=== PATIENT | female | born 1985 | race African-American/Black ===

== ENCOUNTER 2019-10-24 02:33 | Emergency (ER) | payer OTHER ==
[2019-10-24 03:36] LABS: Absolute Lymphocytes (CBC) 2.1 K/uL (0.7-4.9); Basophils % 0.5 % (0-1.3); Hematocrit 37.7 % (36.0-45.0); Lymphocytes % 31.3 % (15.3-44.8); MPV 10.7 fL (7.6-11.3); RBC Red Blood Cell Count 4.36 M/uL (3.86-4.86)
[2019-10-24 03:40] LABS: Protime INR 0.9
[2019-10-24 03:43] LABS: ALT/SGPT 20 U/L (12-78); AST/SGOT 20 U/L (15-37); Albumin 3.2 g/dL (3.4-5.0); Alkaline Phosphatase 77 U/L (45-117); BUN Blood Urea Nitrogen 12 mg/dL (7-18); Bicarbonate 27 mmol/L (21-32); Bilirubin Direct < 0.1 mg/dL (0-0.2); Bilirubin Total 0.2 mg/dL (0.2-1.0); Glucose Level 98 mg/dL (74-106); Potassium 3.1 mmol/L (3.5-5.1); Protein, Total 7.9 g/dL (6.4-8.2); Sodium Level 139 mmol/L (136-145); Troponin (Emerg Dept Use Only) < 0.02 ng/mL (0.0-0.045)
[2019-10-24 03:45] LABS: NT PRO-BNP < 5 pg/mL (<125)
[2019-10-24] MEDS ORDERED: POTASSIUM CL SA 10 MEQ TAB PO ONE (05:06)
--- NOTE | 2019-10-24 06:19 | EDPHYS ---
Physician Documentation [facility] Name: Rosa Padilla Age: 34 yrs Sex: Female : 1985 Arrival Date: 10/24/2019 Time: 02:34 Bed 2 Private MD: ED Physician Jad Esquivel HPI: 10/23 03:03 This 34 yrs old Black Female presents to ER via EMS with complaints of Shortness Of mh7 Breath. 03:03 The patient has shortness of breath at rest. Onset: The symptoms/episode began/occurred mh7 today. Duration: The symptoms are continuous, Resolved. The patient's shortness of breath is aggravated by nothing, is alleviated by nothing. Associated signs and symptoms: Pertinent negatives: chest pain, non-productive cough, productive cough, diaphoresis, dizziness, fever, hemoptysis, loss of consciousness, nausea, numbness in extremities, visual changes, vomiting. Severity of symptoms: At their worst the symptoms were moderate today, in the emergency department the symptoms have resolved and did so just prior to arrival. The patient has experienced similar episodes in the past, multiple times. Patient family called EMS due to patient being SOB. Patient states that she has a history of sleep apnea and had a problem with her CPAP machine. She states that her symptoms have resolved.. Historical: - Allergies: 02:42 PENICILLINS; ao 02:42 GRAPE; ao 02:42 Grapefruit; ao - Home Meds: 02:46 Lorazepam Oral [Active]; fludrocortisone oral oral [Active]; Vitamin D Oral [Active]; ao citalopram oral [Active]; Hydrocortisone Oral [Active]; losartan oral oral [Active]; Phenobarbital Oral [Active]; Medroxyprogesterone Acetate Oral [Active]; Acetaminophen Oral [Active]; Bismatrol oral oral [Active]; Calcium Citrate Oral [Active]; Benadryl Oral [Active]; - PMHx: 02:42 Mental retardation; Sleep Apnea; Anxiety; Asthma; ao - PSHx: 02:42 Unable to obtain; ao - Immunization history:: Adult Immunizations unknown. - Social history:: Smoking status: Patient denies any tobacco usage or history of. ROS: 03:03 Constitutional: Negative for fever, chills, and weight loss, Eyes: Negative for injury, mh7 pain, redness, and discharge, ENT: Negative for injury, pain, and discharge, Neck: Negative for injury, pain, and swelling, Cardiovascular: Negative for chest pain, palpitations, and edema, Abdomen/GI: Negative for abdominal pain, nausea, vomiting, diarrhea, and constipation, Back: Negative for injury and pain, : Negative for injury, bleeding, discharge, and swelling, MS/Extremity: Negative for injury and deformity, Skin: Negative for injury, rash, and discoloration, Neuro: Negative for headache, weakness, numbness, tingling, and seizure, Psych: Negative for depression, anxiety, suicide ideation, homicidal ideation, and hallucinations, Allergy/Immunology: Negative for hives, rash, and allergies, Endocrine: Negative for neck swelling, polydipsia, polyuria, polyphagia, and marked weight changes, Hematologic/Lymphatic: Negative for swollen nodes, abnormal bleeding, and unusual bruising. Exam: 03:03 Constitutional: This is a well developed, well nourished patient who is awake, alert, mh7 and in no acute distress. Head/Face: Normocephalic, atraumatic. Eyes: Pupils equal round and reactive to light, extra-ocular motions intact. Lids and lashes normal. Conjunctiva and sclera are non-icteric and not injected. Cornea within normal limits. Periorbital areas with no swelling, redness, or edema. Neck: Trachea midline, no thyromegaly or masses palpated, and no cervical lymphadenopathy. Supple, full range of motion without nuchal rigidity, or vertebral point tenderness. No Meningismus. Chest/axilla: Normal chest wall appearance and motion. Nontender with no deformity. No lesions are appreciated. Cardiovascular: Regular rate and rhythm with a normal S1 and S2. No gallops, murmurs, or rubs. Normal PMI, no JVD. No pulse deficits. Respiratory: Lungs have equal breath sounds bilaterally, clear to auscultation and percussion. No rales, rhonchi or wheezes noted. No increased work of breathing, no retractions or nasal flaring. Abdomen/GI: Soft, non-tender, with normal bowel sounds. No distension or tympany. No guarding or rebound. No evidence of tenderness throughout. Back: No spinal tenderness. No costovertebral tenderness. Full range of motion. Skin: Warm, dry with normal turgor. Normal color with no rashes, no lesions, and no evidence of cellulitis. MS/ Extremity: Pulses equal, no cyanosis. Neurovascular intact. Full, normal range of motion. Neuro: Awake and alert, GCS 15, oriented to person, place, time, and situation. Cranial nerves II-XII grossly intact. Motor strength 5/5 in all extremities. Sensory grossly intact. Cerebellar exam normal. Normal gait. Psych: Awake, alert, with orientation to person, place and time. Behavior, mood, and affect are within normal limits. Vital Signs: 02:36 BP 130 / 91; Pulse 101; Resp 20; Pulse Ox 100% on R/A; Weight 95.25 kg; Height 5 ft. 4 ao in. (162.56 cm); 02:56 Temp 98.9(O); ao 03:45 BP 114 / 89; Pulse 101; Resp 18; Pulse Ox 100% on R/A; rv 04:30 BP 120 / 88; Pulse 98; Resp 20; Pulse Ox 99% ; rv 06:53 BP 121 / 86; Pulse 96; Resp 15; Temp 98.5; Pulse Ox 99% on R/A; rv 02:36 Body Mass Index 36.05 (95.25 kg, 162.56 cm) ao MDM: 03:02 Patient medically screened. [facility] 06:16 Differential diagnosis: Anemia Anxiety Reaction asthma, Bronchitis Chronic Obstructive 7 Pulmonary Disease Myocardial Infarction pneumonia, Pneumothorax pulmonary edema, Pulmonary Embolism reactive airway disease. Data reviewed: vital signs, nurses notes, EMS record, lab test result(s), cardiac enzymes, CBC, electrolytes, EKG, radiologic studies, CT scan, plain films. Data interpreted: school lunch monitor: rate is 94 beats/min, rhythm is normal sinus rhythm, regular, Interpretation: normal rate, normal rhythm, Pulse oximetry: on room air is 99 %. Interpretation: normal. Counseling: I had a detailed discussion with the patient and/or guardian regarding: the historical points, exam findings, and any diagnostic results supporting the discharge/admit diagnosis, lab results, radiology results, the need for outpatient follow up, to return to the emergency department if symptoms worsen or persist or if there are any questions or concerns that arise at home. 06:32 Response to treatment: the patient's symptoms have resolved after treatment, the [facility] patient's blood pressure is in an acceptable range, mental status has returned to baseline, the patient no longer shows bradycardia, the patient is not short of breath, the patient is not tachycardic, the patient's pain is gone, the patient's temperature has normalized. 10/23 03:02 Order name: Basic Metabolic Panel; Complete Time: 04:36 7 10/23 03:02 Order name: CBC with Diff; Complete Time: 04:36 7 10/23 03:02 Order name: LFT's; Complete Time: 04:36 7 10/23 03:02 Order name: Magnesium; Complete Time: 04:36 7 10/23 03:02 Order name: NT PRO-BNP; Complete Time: 04:36 7 10/23 03:02 Order name: PT-INR; Complete Time: 04:36 7 10/23 03:02 Order name: Troponin (emerg Dept Use Only); Complete Time: 04:36 7 10/23 03:02 Order name: XRAY Chest (1 view) [facility] 10/23 03:02 Order name: Cardiac monitoring; Complete Time: 03:18 7 10/23 03:13 Order name: D-Dimer; Complete Time: 04:36 EDMS 10/23 04:41 Order name: CT Chest For PE Angio [facility] 10/23 03:02 Order name: EKG - Nurse/Tech; Complete Time: 03:18 7 10/23 03:02 Order name: IV Saline Lock; Complete Time: 03:18 7 10/23 03:02 Order name: Labs collected and sent; Complete Time: 03:17 7 10/23 03:02 Order name: O2 Per Protocol; Complete Time: 03:17 7 10/23 03:02 Order name: O2 Sat Monitoring; Complete Time: 03:18 mh7 Administered Medications: 05:00 Drug: Potassium Chloride 40 mEq Route: PO; rv 06:52 Follow up: Response: No adverse reaction rv Disposition: 10/24/19 06:18 Discharged to Home. Impression: Dyspnea, unspecified. - Condition is Stable. - Discharge Instructions: Shortness of Breath, [id number]. - Medication Reconciliation Form, Thank You Letter, Antibiotic Education, Prescription Opioid Use form. - Follow up: Private Physician; When: 1 - 2 days; Reason: Worsening of condition, Recheck today's complaints, Re-evaluation by your physician. - Problem is an acute exacerbation. - Symptoms have improved. Signatures: Dispatcher [employer] [facility] Toribio Carlson, RN RN Christian Holley RN RN Jad Brown MD MD mh7 Corrections: (The following items were deleted from the chart) 03:13 03:03 D-DIMER+COAG.LAB.BRZ ordered. [facility] EDNH 06:48 06:18 10/24/2019 06:18 Discharged to Home. Impression: Dyspnea, unspecified. Condition rv is Stable. Forms are Medication Reconciliation Form, Thank You Letter, Antibiotic Education, Prescription Opioid Use. Follow up: Private Physician; When: 1 - 2 days; Reason: Worsening of condition, Recheck today's complaints, Re-evaluation by your physician. Problem is an acute exacerbation. Symptoms have improved. mh7
--- NOTE | 2019-10-24 06:19 | ER ---
Nurse's Notes [facility] Name: Rosa Padilla Age: 34 yrs Sex: Female : 1985 Arrival Date: 10/24/2019 Time: 02:34 Bed 2 Private MD: Diagnosis: Dyspnea, unspecified Presentation: 10/23 02:36 Chief complaint: EMS states: Per caregiver patient was having SOB and Difficult ao breathing. Pt is disable and has been in different [facility] in [facility]. Patient uses a C-PAP at home. Caregiver also report fluid retention in lower extremities. Coronavirus screen: Patient reports a cough. Patient reports shortness of breath or difficulty breathing. Patient reports travel on a cruise ship or to a country the [facility] currently lists as an affected area. Patient denies contact with known and/or suspected case of COVID-19. Ebola Screen: Patient negative for fever greater than or equal to 101.5 degrees Fahrenheit, and additional compatible Ebola Virus Disease symptoms Patient denies exposure to infectious person. Patient reports travel to Ebola-affected area in the 21 days before illness onset. Initial Sepsis Screen: Does the patient meet any 2 criteria? Does the patient have a suspected source of infection? No. Patient's initial sepsis screen is negative. Risk Assessment: Do you want to hurt yourself or someone else? Patient reports no desire to harm self or others. Onset of symptoms is unknown. 02:36 Method Of Arrival: EMS: [facility] ao 02:36 Acuity: [place] 3 ao Triage Assessment: 02:45 General: Appears comfortable. Respiratory: Reports WAS NOT BREATHING NORMALLY ON CPAP rv PER RELATIVE Onset: The symptoms/episode began/occurred at an unknown time. the patient reports symptoms have resolved. Historical: - Allergies: 02:42 PENICILLINS; ao 02:42 GRAPE; ao 02:42 Grapefruit; ao - Home Meds: 02:46 Lorazepam Oral [Active]; fludrocortisone oral oral [Active]; Vitamin D Oral [Active]; ao citalopram oral [Active]; Hydrocortisone Oral [Active]; losartan oral oral [Active]; Phenobarbital Oral [Active]; Medroxyprogesterone Acetate Oral [Active]; Acetaminophen Oral [Active]; Bismatrol oral oral [Active]; Calcium Citrate Oral [Active]; Benadryl Oral [Active]; - PMHx: 02:42 Mental retardation; Sleep Apnea; Anxiety; Asthma; ao - PSHx: 02:42 Unable to obtain; ao - Immunization history:: Adult Immunizations unknown. - Social history:: Smoking status: Patient denies any tobacco usage or history of. Screenin:45 Abuse screen: Denies threats or abuse. Denies injuries from another. Nutritional rv screening: No deficits noted. Tuberculosis screening: No symptoms or risk factors identified. Fall Risk None identified. Assessment: 02:44 General: Appears comfortable, Behavior is calm, cooperative. Pain: Denies pain. Neuro: rv Level of Consciousness is awake, alert, obeys commands, Oriented to person, place, time, situation. Cardiovascular: Patient's skin is warm and dry. Rhythm is sinus rhythm. Respiratory: Airway is patent Respiratory effort is even, unlabored, Breath sounds are clear bilaterally. Derm: Skin is intact. 05:06 Reassessment: Patient and/or family updated on plan of care and expected duration. Pain rv level reassessed. Patient is alert, oriented x 3, equal unlabored respirations, skin warm/dry/pink. Respiratory: Airway is patent Respiratory effort is even, unlabored. Vital Signs: 02:36 BP 130 / 91; Pulse 101; Resp 20; Pulse Ox 100% on R/A; Weight 95.25 kg; Height 5 ft. 4 ao in. (162.56 cm); 02:56 Temp 98.9(O); ao 03:45 BP 114 / 89; Pulse 101; Resp 18; Pulse Ox 100% on R/A; rv 04:30 BP 120 / 88; Pulse 98; Resp 20; Pulse Ox 99% ; rv 06:53 BP 121 / 86; Pulse 96; Resp 15; Temp 98.5; Pulse Ox 99% on R/A; rv 02:36 Body Mass Index 36.05 (95.25 kg, 162.56 cm) ao ED Course: 02:34 Patient arrived in ED. cl3 02:40 Triage completed. ao 02:44 Christian Carter RN is Primary Nurse. rv 02:45 Patient has correct armband on for positive identification. panel monitor on. Pulse rv ox on. NIBP on. 02:46 Jad Esquivel MD is Attending Physician. [facility] 02:47 Arm band placed on right wrist. Patient placed in an exam room, Patient notified of ao wait time. 03:05 Inserted saline lock: 20 gauge in right forearm, using aseptic technique. Blood rv collected. 03:05 Initial lab(s) drawn, by me, sent to lab. EKG done, by ED staff, reviewed by Jad Esquivel MD. 03:26 XRAY Chest (1 view) In Process Unspecified. EDMS 05:[address] via stretcher. rv 05:32 CT Chest For PE Angio In Process Unspecified. EDMS 06:52 No provider procedures requiring assistance completed. IV discontinued, intact, rv bleeding controlled, No redness/swelling at site. Pressure dressing applied. Administered Medications: 05:00 Drug: Potassium Chloride 40 mEq Route: PO; rv 06:52 Follow up: Response: No adverse reaction rv Outcome: 06:18 Discharge ordered by mh7 06:48 Patient left the ED. rv 06:52 Discharged to home ambulatory, with family. rv 06:52 Condition: good 06:52 Discharge instructions given to patient, family, Instructed on discharge instructions, follow up and referral plans. Demonstrated understanding of instructions, follow-up care. Signatures: Dispatcher [employer] Toribio Atkinson RN RN ao Vicente, Ronaldo, RN RN rv Lewis, Charde cl3 Jad Esquivel MD MD mh7
[2019-10-24 06:54] VITALS: TEMP 98.9
[2019-10-24 06:57] VITALS: BP 120/88; O2SAT 99
--- NOTE | 2019-10-24 10:05 | RAD REPORT ---
EXAM DESCRIPTION: RAD - Chest Single View - 10/24/2019 4:39 am CLINICAL HISTORY: 34 years Female, SOB COMPARISON: None. FINDINGS: Low lung volumes are demonstrated. There is mild hazy opacity in both lower lung zones. No pneumothorax. No significant pleural effusion. Cardiomediastinal silhouette is unremarkable. There is mild levocurvature of the upper thoracic spine. IMPRESSION: Low lung volumes. Mild hazy opacity in both lung bases which may be related to atelectas is or body wall soft tissues with small infiltrate difficult to exclude. Lateral view can be obtained for further evaluation as appropriate. Electronically signed by: Josemanuel Arevalo MD 10/24/2019 3:59 AM CDT Due to temporary technical issues with the PACS/Fluency reporting system, reports are being signed by the in house radiologist without review as a courtesy to ensure prompt reporting. The interpreting r adiologist is fully responsible for the content of the report.
--- NOTE | 2019-10-24 10:06 | RAD REPORT ---
EXAM DESCRIPTION: CT - Chest For Pe Angio - 10/24/2019 6:11 am CLINICAL HISTORY: The patient is 34 years old and is Female; SOB TECHNIQUE: Axial computed tomographic angiography images of the chest with intravenous contrast. S agittal and coronal reformatted images were created and reviewed. This CT exam was performed using one or more of the following dose reduction techniques: automated exposure control, adjustment of t he mA and/or kV according to patient size, and/or use of iterative reconstruction technique. MIP re constructed images were created and reviewed. COMPARISON: No relevant prior studies available. FINDINGS: Limitations: Mild respiratory motion limits the evaluation. Pulmonary arteries: No PE identified. Aorta: No acute findings. No thoracic aortic aneurysm. Lungs: Bilateral linear atelectasis or scarring. No pulmonary consolidation or groundglass opacities. Pleural space: No pleural effusion or pneumothorax. Borderline cardiac enlargement. No significa nt pericardial fluid. Heart: Unremarkable. No cardiomegaly. No significant pericardial effusion. No evidence of RV dysfunction. Bones/joints: Scoliosis. No acute compression fracture. No dislocation. Soft tissues: Unremarkable. Lymph nodes: Unremarkable. No enlarged lymph nodes. IMPRESSION: 1. Mild respiratory motion limits the evaluation. 2. No PE identified. Electronically signed by: Indira Goldstein MD 10/24/2019 5:55 AM CDT Due to temporary technical issues with the PACS/Fluency reporting system, reports are being signed by the in house radiologist without review as a courtesy to ensure prompt reporting. The interpreting r adiologist is fully responsible for the content of the report.
--- NOTE | 2019-10-25 07:19 | EKG ---
Test Date: 2019-10-24 Test Time: 02:38:58 Yarn Sorter: RV MEASUREMENT RESULTS: Intervals: Rate: 96 RI: 110 QRSD: 76 QT: 378 QTc: 477 Hopkins: P: 72 RI: 110 QRS: 5 T: 4 INTERPRETIVE STATEMENTS: Undetermined rhythm Cannot rule out Anterior infarct, age undetermined Abnormal ECG No previous ECG available for comparison Electronically Signed On 10-25-19 07:16:00 CDT by Markell Bar
== END 2019-10-24 06:48 | disposition home or self-care (01) ==
LOC: ER 02:33
DX: R06.00 Dyspnea, unspecified (principal); F41.9 Anxiety disorder, unspecified; Z88.0 Allergy status to penicillin; Z91.018 Allergy to other foods
CPT/HCPCS: 93005; 85025; 80048; 36415; 83735; 85610; 85379; 80076; 84484; 83880; 71275; 71045; 99285; Q9967